=== PATIENT | male | born 1950 | race Hispanic/Latino ===

== ENCOUNTER 2018-05-15 13:17 | Emergency (ER) | payer MEDICARE ==
[2018-05-15 13:31] VITALS: BP 138/82; PULSE 102; RESP 18; TEMP 98.3; O2SAT 95
--- NOTE | 2018-05-15 13:36 | ED PDOC ---
Lower Extremity Pain/Injury Time Seen by Provider: 05/15/18 13:34 Chief Complaint (Nursing): Lower Extremity Problem/Injury Chief Complaint (Provider): knee injury History Per: Patient Additional Complaint(s): 67-year-old male presents with pain to left knee status post trip and fall at home. Patient states he stood up and then fell injuring left knee. He denies syncope or dizziness prior to fall. He did not sustain head injury or loss of consciousness. Patient ambulates at home when he is out and about he uses a motorized wheelchair. PMD: Dr. Vazquez Past Medical History Reviewed: Historical Data, Nursing Documentation, Vital Signs Vital Signs: Last Vital Signs Temp 98.3 F 05/15/18 13:27 Pulse 102 H 05/15/18 13:27 Resp 18 05/15/18 13:27 BP 138/82 05/15/18 13:27 Pulse Ox 95 05/15/18 13:27 - Medical History PMH: COPD, Deep Vein Thrombosis, Hypercholesterolemia - Surgical History Surgical History: Appendectomy - Family History Family History: States: No Known Family Hx - Living Arrangements Living Arrangements: Alone - Social History Current smoker - smoking cessation education provided: No Ex-Smoker (has not smoked in the last 12 months): Yes (quit several years ago) Alcohol: Occasional Drugs: Denies - Home Medications Home Medications: Ambulatory Orders Medication Instructions Recorded Albuterol/Ipratropium [Duoneb 3 3 ml IH QID 06/21/16 mg/0.5 mg (3 ml) UD] Aspirin/Dipyridamole 1 tab PO BID 06/21/16 [Aspirin-Dipyridam ER 25-200 mg] Atorvastatin [Lipitor] 10 mg PO DAILY 06/21/16 Budesonide [Pulmicort Respules] 2 ml INH BID 06/21/16 Budesonide/Formoterol Fumarate 2 puff INH Q12H 06/21/16 [Symbicort 160-4.5 Mcg Inhaler] Cilostazol [Pletal] 100 mg PO BID 06/21/16 Tiotropium Br/Olodaterol HCl 2 puff IH DAILY 06/21/16 [Stiolto Respimat Inhal [place]] Azithromycin [Zithromax] 500 mg PO DAILY #5 tab 06/22/16 Hydrochlorothiazide [Microzide] 12.5 mg PO DAILY #14 cap 06/22/16 - Allergies Allergies/Adverse Reactions: Allergies Allergy/AdvReac Type Severity Reaction Status Date / Time No Known Allergies Allergy Verified 05/15/18 13:31 Wells Criteria for PE - Wells Criteria for Pulmonary Embolism Clinical Signs and Symptoms of DVT: No P.E is #1 Diagnosis, or Equally Likely: No Heart Rate >100: No Immobilization at least 3 days;Surgery previous 4 weeks: No Previous, objectively diagnosed PE or DVT: No Hemoptysis: No Malignancy w/treatment within 6 months, or palliative: No Total Score: 0 Review of Systems ROS Statement: Except As Marked, All Systems Reviewed And Found Negative Musculoskeletal: Positive for: Other (left knee injury) Neurological: Positive for: Other (denies head injury or LOC) Physical Exam - Reviewed Nursing Documentation Reviewed: Yes Vital Signs Reviewed: Yes - Physical Exam Appears: Positive for: Well, Non-toxic, No Acute Distress Skin: Positive for: Normal Color. Negative for: Rash Eye Exam: Positive for: Normal appearance Cardiovascular/Chest: Positive for: Regular Rate, Rhythm Respiratory: Positive for: Normal Breath Sounds Extremity: Positive for: Other (Erythema and swelling noted to left patellar region, full range of motion of knee noted with pain, no calf swelling or tenderness, normal distal sensation left lower extremity) Neurologic/Psych: Positive for: Alert, Oriented - ECG O2 Sat by Pulse Oximetry: 95 Pulse Ox Interpretation: Normal - Other Rad Left knee x-ray X-Ray: Interpreted by Me, Viewed By Me X-Ray Interpretation: no fx, no dis Medical Decision Making Medical Decision Makin67 year old male with left knee injury Plan: X-ray left knee Pain meds declined Patient is aware of x-ray results. Pa wrap applied to left knee. Patient advised ice and elevate affected area and take Tylenol for pain. He was referred to orthopedist on-call for follow-up. Disposition - Clinical Impression Clinical Impression: Knee contusion - Patient ED Disposition Is Patient to be Admitted: No Counseled Patient/Family Regarding: Studies Performed, Diagnosis, Need For Followup - Disposition Referrals: Bo Hurtado MD [Medical Doctor] - Disposition: Routine/Home Disposition Time: 14:56 Condition: STABLE Additional Instructions: Ice, rest and elevate affected area. [id number] Tylenol for pain as needed every 4-6 hours. Follow-up with orthopedist or primary doctor for any persistent symptoms. Instructions: Contusion (DC), Knee Sprain (DC) Forms: [facility] ([place])
--- NOTE | 2018-05-15 15:24 | RAD ---
Date of service: 05/15/2018 PROCEDURE: Left Knee Radiographs. HISTORY: Posttraumatic pain. COMPARISON: 05/22/2016. FINDINGS: BONES: Normal. No fracture. JOINTS: Normal. No osteoarthritis. JOINT EFFUSION: None. OTHER FINDINGS: Prepatellar soft tissue swelling without underlying osseous abnormality. IMPRESSION: Soft tissue swelling without acute articular or osseous abnormality.
== END 2018-05-15 15:01 | disposition home or self-care (01) ==
LOC: H.ER 13:17
DX: S80.02XA Contusion of left knee, initial encounter (principal); W19.XXXA Unspecified fall, initial encounter; Y92.89 Other specified places as the place of occurrence of the external cause; E78.00 Pure hypercholesterolemia, unspecified; Z86.718 Personal history of other venous thrombosis and embolism